=== PATIENT | female | born 1965 | race Caucasian/White ===

== ENCOUNTER 2022-04-08 12:27 | Inpatient (IN) | payer MEDICARE, MEDICAID, SELFPAY ==
--- NOTE | ~2022-04-08 | CT_ITS ---
EXAMINATION: CT ABDOMEN AND PELVIS WITHOUT CONTRAST CLINICAL INFORMATION: Vomiting. Pain. COMPARISON: None TECHNIQUE: Multidetector volumetric imaging was performed from the superior aspect of the liver through the pubic symphysis. Sagittal and coronal reformatted images were obtained on the technologist's workstation. This CT examination was performed using dose optimization techniques as appropriate, variously including the following: *Automated exposure control *Adjustment of mA and/or kV according to patient size (this includes techniques or standardized protocols for targeted exams where dose is matched to indication/reason for exam; i.e. extremities or head) *Use of iterative reconstruction technique DLP: 529 mGy-cm FINDINGS: LUNG BASES: The heart is enlarged. There is a small right pleural effusion. There is airspace disease seen at the right lung base in the right middle and lower lobes questionable for small pneumonia. Left lung base is clear. LIVER, GALLBLADDER, AND BILIARY TREE: The liver is normal in size, shape, and attenuation. No focal hepatic lesion or biliary ductal dilatation is present. The gallbladder has been removed. PANCREAS: Unremarkable. SPLEEN: Unremarkable. ADRENAL GLANDS: Unremarkable. The [place] kidneys are atrophic. There are bilateral renal calcifications probably representing vascular calcifications. BLADDER: Not optimally distended. GASTROINTESTINAL TRACT: There is wall thickening and edema of the colon suggestive of colitis. The stomach is slightly dilated fluid-filled. There are fluid-filled slightly dilated loops of small bowel probably representing an ileus. The appendix is normal. There is a small amount of ascites in the abdomen and pelvis. ABDOMINAL WALL: There is diffuse anasarca. No hernia. LYMPH NODES: Normal. VASCULAR: There is severe atherosclerotic disease. There is a femoral-femoral bypass graft. There are bilateral renal artery and left iliac stents. PELVIC VISCERA: The uterus may been removed. No pelvic mass. OSSEOUS STRUCTURES: Unremarkable. CT/CT abdomen pelvis wo IV con IMPRESSION: Pancolitis. Probable small bowel ileus. Dilated fluid-filled stomach. Possible aspiration should be considered. Small amount of ascites. Severe atherosclerotic disease. Atrophic-appearing kidneys. Small right pleural effusion and question right lower lobe pneumonia. Fleischner guidelines were followed.
--- NOTE | ~2022-04-08 | US_ITS ---
EXAMINATION: US ABDOMEN LIMITED CLINICAL INFORMATION: Right upper quadrant pain. COMPARISON: CT of the abdomen and pelvis from earlier the same day TECHNIQUE: Real-time imaging of the right upper quadrant abdominal viscera. FINDINGS: The liver is normal in echotexture. Liver is normal in size. No focal lesion or biliary duct dilatation. The gallbladder has been removed. There is a small amount of ascites. US/US abdomen limited IMPRESSION: Normal-appearing liver. Surgically absent gallbladder. Small amount of ascites.
--- NOTE | 2022-04-08 12:36 | ED.GIBLEED ---
HPI - GI Bleed General Chief complaint: GI Bleed Stated complaint: VOMITING DARK EMESIS,ABD PAIN,+CDIFF PER SNF Time Seen by Provider: 04/08/22 12:28 Source: patient and old records reviewed Mode of arrival: EMS Limitations: no limitations History of Present Illness HPI Narrative: 56 yo female with hx of NSTEMI, CAD, COPD, ESRD on HD MWF, HTN, HLD, PAF on eliquis, also on plavix?, GERD, muscle wasting here with c/o nausea/vomiting and abdominal pain this AM - started to have coffee ground emesis as well. Denies prior GIB symptoms. States she has never had this happen before and has not had endoscopy in the past. She is currently being treated for C. diff dx 03/30 last dose of vancomycin 04/10. MD complaint: coffee ground emesis Onset (ago): day(s) (this AM.) Pain Consistency: constant Severity: moderate Relieving factors: eating Exacerbating factors: none Context: anticoagulant use Associated symptoms: abdominal pain, nausea, vomiting, loss of appetite and malaise Treatments Prior to Arrival: none Related Data Home Medications Medication Instructions Recorded Confirmed albuterol sulfate 90 mcg/actuation 2 puff inhalation Q6H PRN 04/08/22 04/08/22 aerosol inhaler (ProAir HFA) Shortness Of Breath apixaban 2.5 mg tablet (Eliquis) 2.5 mg PO BID 04/08/22 04/08/22 cholecalciferol (vitamin D3) 25 25 mcg PO DAILY 04/08/22 04/08/22 mcg (1,000 unit) tablet clopidogrel 75 mg tablet (Plavix) 75 mg PO DAILY 04/08/22 04/08/22 docusate sodium 100 mg capsule 100 mg PO BID PRN Constipation 04/08/22 04/08/22 (Colace) duloxetine 60 mg capsule,delayed 60 mg PO DAILY 04/08/22 04/08/22 release (Cymbalta) epoetin joselyn 20,000 unit/mL 20,000 unit subcut MOWEFR@1600 PRN 04/08/22 04/08/22 injection solution (Procrit) ANEMIA fenofibrate nanocrystallized 145 145 mg PO DAILY 04/08/22 04/08/22 mg tablet gabapentin 100 mg capsule 300 mg PO BEDTIME 04/08/22 04/08/22 hydrocortisone 1 % topical cream 1 appl topical BID 04/08/22 04/08/22 insulin glargine 100 unit/mL 6 unit subcut BEDTIME 04/08/22 04/08/22 subcutaneous solution insulin lispro 100 unit/mL 1 sliding scale dose subcut QIDACHS 04/08/22 04/08/22 subcutaneous solution ipratropium 20 mcg-albuterol 100 1 puff inhalation Q6H PRN COPD 04/08/22 04/08/22 mcg/actuation mist for inhalation (Combivent Respimat) isosorbide mononitrate 30 mg 30 mg PO SUTUTHSA@0900 04/08/22 04/08/22 tablet,extended release 24 hr lactobacillus combination no.4 3 3,000 mmu cells PO DAILY 04/08/22 04/08/22 billion cell capsule (Probiotic) levothyroxine 50 mcg tablet 50 mcg PO DAILY 04/08/22 04/08/22 (Levoxyl) melatonin 3 mg tablet 3 mg PO BEDTIME PRN Insomnia 04/08/22 04/08/22 metoprolol tartrate 25 mg tablet 12.5 mg PO DAILY 04/08/22 04/08/22 midodrine 5 mg tablet 5 mg PO TIDWM 04/08/22 04/08/22 nitroglycerin 0.4 mg sublingual 0.4 mg sublingual Q5M PRN Chest 04/08/22 04/08/22 tablet Pain oxycodone 5 mg tablet 5 mg PO Q6H PRN Pain 04/08/22 04/08/22 polyethylene glycol 3350 17 gram 17 g PO DAILY PRN Constipation 04/08/22 04/08/22 oral powder packet (Miralax) rosuvastatin 40 mg tablet (Crestor) 40 mg PO DAILY 04/08/22 04/08/22 sevelamer carbonate 800 mg tablet 800 mg PO TIDWM 04/08/22 04/08/22 umeclidinium 62.5 mcg-vilanterol 1 inh inhalation DAILY 04/08/22 04/08/22 25 mcg/actuation powdr for inhalation (Anoro Ellipta) vancomycin 25 mg/mL oral solution 125 mg PO QID 04/08/22 04/08/22 (Firvanq) vitamin B complex and vitamin C 1 cap PO MOWEFR 04/08/22 04/08/22 no.20-folic acid 1 mg capsule Allergies Allergy/AdvReac Type Severity Reaction Status Date / Time bupropion [From Wellbutrin] Allergy Unknown Unknown Verified 04/08/22 14:33 nefazodone [From Serzone] Allergy Unknown Unknown Verified 04/08/22 14:33 varenicline [From Chantix] Allergy Unknown Unknown Verified 04/08/22 14:33 lisinopril Allergy Unknown Unknown Uncoded 04/08/22 14:33 Review of Systems Review of Systems: Constitutional : No Weight loss, No Fever, No Chills ENT/Mouth : No sore throat, No Rhinorrhea Eyes: No Swelling, No Redness Cardiovascular : No Chest Pain, No SOB, NoEdema Respiratory : No Cough, No Sputum, No Wheezing Gastrointestinal : Positive Nausea, Positive Vomiting, positive Diarrhea, positive abdominal Pain, No Hematochezia, No Melena, pos coffee ground emesis Genitourinary : No Dysuria, No Urinary Frequency, No Hematuria, No Urgency Musculoskeletal : No joint pain, No Myalgias, No Joint Swelling Skin : No Skin Lesions, No rash Neuro : No Weakness, No Numbness, No Dizziness, No Headache Psych : No Anxiety/Panic, No Depression Heme/Lymph: No Bruising, No Lymphadenopathy Endocrine : No Polyuria, No Polydipsia All other systems reviewed and are negative. PENDING SALE TO [facility] Past Medical History Attestation statement: The following information was validated with the patient. Source: old records reviewed Medical History (Updated 04/08/22 @ 16:36 by Anne Marie Kaur DO) Afib Anticoagulant long-term use Anxiety C. difficile colitis CAD (coronary artery disease) COPD (chronic obstructive pulmonary disease) Diabetes ESRD (end stage renal disease) GERD (gastroesophageal reflux disease) HTN (hypertension) Hyperlipidemia NSTEMI (non-ST elevated myocardial infarction) Systolic CHF Social History Social History (System 04/08/22 @ 14:33 by Pooja Mccormack) Patient Tobacco Use Status: Tobacco use Unknown Advance Directives: Yes Advance Directives Information Provided: Yes Advance Directives on File: No Physical Exam Vital Signs: Vital Signs: Last Vital Signs Temp 98 F 04/08/22 13:24 Pulse 88 04/08/22 16:21 Resp 16 04/08/22 16:21 BP 120/97 H 04/08/22 16:21 BMI result Body Mass Index 23.8 Appearance: Alert. Oriented X3. Mild acute distress. frail older appearing Eyes: Pupils equal, round and reactive to light. Scleral icterus ENT: Pharynx normal. Neck: Normal inspection. Neck supple. CVS: Normal heart rate and rhythm. Pulses 1+ throughout Respiratory: No respiratory distress. Breath sounds diminished both bases R > L Abdomen: Soft and diffuse ttp in epigastric area no rebound, scant brown coffee grounds noted in emesis bag Rectal soft light brown foul smelling stool noted Skin: Skin warm and dry. pale / jaskin color. chronic bruising and discoloration on feet. fistula LUE Extremities: 1+ pitting lower extremity edema. purplish hue to all digits in extremities states this is chronic Neuro: Oriented X 3. No motor deficit. No sensory deficit. Course Course Course Narrative: trop high c/o upper abdominal pain - vomiting coffee ground emesis, LBBB attempting to get old EKGs patient already took eliquis and plavix this AM EKG unchanged from Feb 2022 has chronic LBBBB SNF records note patient was to be managed medically for her CAD not a CABG candidate, patient notes the same thing to me and is aware she has a LBBB denies chest pain but reports nausea at this time BP 110/70 more abdominal pain IV zofran and fentanyl ordered. I discussed if the patient is having a heart attack or if she is to code the patient states she doesn't want CPR and wants to be let go but in no pain. H/H still pending trop high - will put out call to Cardiology once H/H returned stomach is enlarged will decompress with small NG tube if she allows refusing NG tube until arrives, told RN he was on the way. message sent to Cardiology 345pm patient is not a candidate for aspirin or heparin - coags are already high but also she is having coffee ground emesis - patient is not having chest pain at this time, no medications or cardiac workup to be done. at bedside aware patient wishes to be DNR/DNI- she is refusing NG tube at this time, repeat fentanyl ordered patient states her GB was removed has elevated LFTs new MOLST form signed with patient and by who is HCP signed out to Dr. Urrutia pending CT scan report and US - planned admit will add on lactic acid, cultures - possible aspiration will add on zosyn infection suspected 430pm already on oral vancomycin for her c diff colitis patient now stating she doesn't want to do HD anymore - family likely wants to talk to hospice team while she is here. they are having discussions at bedside, patient has refused further IV placement, no central line no NG tube. MDM - GI Bleed MDM Narrative Medical decision making narrative: 56 yo female with hx of NSTEMI, CAD, COPD, ESRD on HD MWF, HTN, HLD, PAF on eliquis, also on plavix?, GERD, muscle wasting here with abdominal pain n/v and now coffee ground emesis. She is on both plavix and eliquis - IV protonix ordered. She is currently under treatment for C diff. Will need CT scan for extent of colitis vs ileus vs SBO - likely admit. Dispo per results and findings. Lab Data Result diagrams: 04/08/22 14:47 04/08/22 14:47 Labs: Lab Results 04/08/22 04/08/22 04/08/22 Range/Units 13:18 14:08 14:47 WBC 10.0 (4.8-10.8) X10*3/uL RBC 3.25 L (4.20-5.50) X10*6/uL Hgb 10.3 L (12.0-16.0) g/dl Hct 34.3 L (37.0-47.0) % MCV 105.5 H D (80.0-98.0) fL MCH 31.7 (27.0-33.0) pg MCHC 30.0 L (31.0-35.0) g/dl RDW 23.9 H (11.0-16.0) % Plt Count 103 L (160-400) X10*3/uL MPV 12.6 H (9.4-12.3) fL Immature Gran % (Auto) 0.4 (0.0-0.4) % Neut % (Auto) 82.7 H (45-73) % Lymph % (Auto) 6.3 L (20-40) % Wayne % (Auto) 10.5 (2-11) % Eos % (Auto) 0.0 (0-4) % Baso % (Auto) 0.1 (0-2) % Lymph # (Auto) 0.6 L (1.2-4.9) X10*3/uL Wayne # (Auto) 1.1 (0.1-1.2) X10*3/uL Eos # (Auto) 0.0 (0.0-0.4) X10*3/uL Baso # (Auto) 0.0 (0.0-0.2) X10*3/uL Abs Immat Gran (auto) 0.04 H (0.00-0.03) X10*3/uL Absolute Neuts (auto) 8.2 (2.0-8.3) x10*3/uL Absolute Nucleated RBC 0.130 H (0.0-0.012) X10*3/uL Nucleated RBC % (auto) 1.3 H (0.0-0.2) /100WBC PT (10.0-13.1) SEC INR (0.9-1.1) APTT (26.0-36.4) SEC Sodium (135-145) mmol/L Potassium (3.3-5.1) mmol/L Chloride (96-108) mmol/L Carbon Dioxide (22-29) mmol/L Anion Gap (12-20) BUN (9-16) mg/dL Creatinine (0.5-1.4) mg/dL Estim Creat Clear Calc Estimated GFR Random Glucose (60-115) mg/dL Calcium (8.4-10.2) mg/dL Magnesium (1.6-2.6) mg/dL Total Bilirubin (0.0-1.0) mg/dL Direct Bilirubin (0.0-0.5) mg/dL AST (5-31) U/L ALT (0-31) U/L Alkaline Phosphatase (39-117) U/L Troponin I High Sens 9228.8 H* (<3.5-17.0) ng/L Total Protein (6.5-8.0) g/dL Albumin (3.5-5.0) g/dL Lipase (8-78) U/L COVID-19 ([facility]) Negative (Negative) COVID-19 Clin Com See Note Blood Type Antibody Screen 04/08/22 04/08/22 04/08/22 Range/Units 14:47 14:47 14:47 WBC (4.8-10.8) X10*3/uL RBC (4.20-5.50) X10*6/uL Hgb (12.0-16.0) g/dl Hct (37.0-47.0) % MCV (80.0-98.0) fL MCH (27.0-33.0) pg MCHC (31.0-35.0) g/dl RDW (11.0-16.0) % Plt Count (160-400) X10*3/uL MPV (9.4-12.3) fL Immature Gran % (Auto) (0.0-0.4) % Neut % (Auto) (45-73) % Lymph % (Auto) (20-40) % Wayne % (Auto) (2-11) % Eos % (Auto) (0-4) % Baso % (Auto) (0-2) % Lymph # (Auto) (1.2-4.9) X10*3/uL Wayne # (Auto) (0.1-1.2) X10*3/uL Eos # (Auto) (0.0-0.4) X10*3/uL Baso # (Auto) (0.0-0.2) X10*3/uL Abs Immat Gran (auto) (0.00-0.03) X10*3/uL Absolute Neuts (auto) (2.0-8.3) x10*3/uL Absolute Nucleated RBC (0.0-0.012) X10*3/uL Nucleated RBC % (auto) (0.0-0.2) /100WBC PT 51.3 H (10.0-13.1) SEC INR 4.2 H (0.9-1.1) APTT 46.7 H (26.0-36.4) SEC Sodium 136 (135-145) mmol/L Potassium 3.8 D (3.3-5.1) mmol/L Chloride 92 L (96-108) mmol/L Carbon Dioxide 17 L (22-29) mmol/L Anion Gap 31 H (12-20) BUN 25 H (9-16) mg/dL Creatinine 3.93 H (0.5-1.4) mg/dL Estim Creat Clear Calc 13.3 Estimated GFR 12 Random Glucose 88 (60-115) mg/dL Calcium 9.6 D (8.4-10.2) mg/dL Magnesium 2.1 (1.6-2.6) mg/dL Total Bilirubin 5.4 H (0.0-1.0) mg/dL Direct Bilirubin 4.6 H (0.0-0.5) mg/dL AST 1016 H (5-31) U/L ALT 221 H (0-31) U/L Alkaline Phosphatase 103 (39-117) U/L Troponin I High Sens (<3.5-17.0) ng/L Total Protein 5.6 L (6.5-8.0) g/dL Albumin 2.8 L (3.5-5.0) g/dL Lipase 28 (8-78) U/L COVID-19 ([facility]) (Negative) COVID-19 Clin Com Blood Type A Positive Antibody Screen NEGATIVE ECG Data Attestation: I personally reviewed and interpreted this ECG as follows: ECG interpretation date: 04/08/22 ECG interpretation time: 12:57 Interpretation: Rate: 89 Rhythm: NSR [place]: left Normal P waves. Normal JHON. LBBB ST T wave : no DIANA, nonspecific LBBB pattern qTC: normal prior studies: no priors The study has been interpreted contemporaneously by me. . Procedures EJ/Peripheral Line Neck R: Time Out Performed: Yes Skin Cleansed in Sterile Fashion: Yes Size (gauge): 20 IV Secured and Dressing Applied: Yes Patient Tolerated Procedure: well and no complications Critical Care Time Critical Care Time Critical Care Time: Yes Total Critical Care Time: 45 Attestation: review of records, medical consult, family discussion I attest to this time spent taking care of the patient Discharge Plan Discharge Clinical Impression: Acute upper gastrointestinal bleeding, Nausea, Non-ST elevation MT (NSTEMI), Elevated liver enzymes, Pancolitis, C. difficile colitis, Ileus Aspiration pneumonia Qualifiers: Aspiration pneumonia type: due to vomit Laterality: right Lung location: unspecified part of lung Qualified Code(s): J69.0 - Pneumonitis due to inhalation of food and vomit Patient Disposition: Admitted As Inpatient
--- NOTE | 2022-04-08 12:42 | ECG_ITS ---
Test Reason : gi bleed Blood Pressure : / mmHG Vent. Rate : 089 BPM Atrial Rate : 089 BPM P-R Int : 158 ms QRS Dur : 180 ms QT Int : 466 ms P-R-T Axes : 038 -27 121 degrees QTc Int : 566 ms Normal sinus rhythm Left bundle branch block Abnormal ECG No previous ECGs available Referred By: Anne Marie Kaur Electronically Signed By:SHAWN CORNEJO
[2022-04-08 13:24] VITALS: BP 104/63; BP 93/61; PULSE 89; PULSE 90; RESP 22; TEMP 36.6; O2SAT 94; BMI 23.8
--- NOTE | 2022-04-08 13:34 | PHA.MEDREC ---
Pharmacy Consult ? Medication Reconciliation Pharmacy has completed the medication reconciliation. list provided from natalio rios
[2022-04-08] MEDS: Pantoprazole Sodium 40 MG/10 ML VIAL IVPUSH (13:47)
[2022-04-08] MEDS: ondansetron HCL 4 MG/2 ML VIAL IVPUSH ×3 (13:47→20:08)
[2022-04-08 14:47] LABS: COVID-19 Test Negative (Negative)
[2022-04-08 14:54] LABS: MANUAL DIFF FLAG NO
[2022-04-08 14:57] LABS: Basophils Percent Auto 0.1 % (0-2); Hematocrit 34.3 % (37.0-47.0); Hemoglobin 10.3 g/dl (12.0-16.0); Imm Gran Abs Auto 0.04 X10*3/uL (0.00-0.03); Imm Gran Pct Auto 0.4 % (0.0-0.4); Lymphocytes Absolute Auto 0.6 X10*3/uL (1.2-4.9); Lymphocytes Percent Auto 6.3 % (20-40); Mean Corpuscular Hemoglobin 31.7 pg (27.0-33.0); Mean Corpuscular Volume 105.5 fL (80.0-98.0); Mean Platelet Volume 12.6 fL (9.4-12.3); Monocytes Absolute Auto 1.1 X10*3/uL (0.1-1.2); Monocytes Percent Auto 10.5 % (2-11); Neutrophils Absolute Auto 8.2 x10*3/uL (2.0-8.3); Neutrophils Percent Auto 82.7 % (45-73); Platelet Count 103 X10*3/uL (160-400); Red Blood Count 3.25 X10*6/uL (4.20-5.50); Red Cell Distribution Width 23.9 % (11.0-16.0)
[2022-04-08 14:59] LABS: INTERNATIONAL NORM RATIO 4.2 (0.9-1.1); Prothrombin Time 51.3 SEC (10.0-13.1)
[2022-04-08 15:02] LABS: Partial Thromboplastin Time 46.7 SEC (26.0-36.4)
[2022-04-08] MEDS: fentaNYL citrate/PF 100 MCG/2 ML VIAL 25 MCG IVPUSH ×2 (15:24→16:11)
[2022-04-08 15:33] LABS: Alanine Aminotransferase 221 U/L (0-31); Albumin Level 2.8 g/dL (3.5-5.0); Alkaline Phosphatase 103 U/L (39-117); Anion Gap 31 (12-20); Aspartate Amino Transferase 1016 U/L (5-31); Bilirubin Direct 4.6 mg/dL (0.0-0.5); Bilirubin Total 5.4 mg/dL (0.0-1.0); Blood Urea Nitrogen 25 mg/dL (9-16); Calcium 9.6 mg/dL (8.4-10.2); Carbon Dioxide 17 mmol/L (22-29); Chloride 92 mmol/L (96-108); Creatinine Clr Calc Pharmacy 13.3; Estimated Glomerular Filt Rate 12; Glucose Random 88 mg/dL (60-115); Lipase 28 U/L (8-78); Magnesium 2.1 mg/dL (1.6-2.6); Potassium 3.8 mmol/L (3.3-5.1); Sodium 136 mmol/L (135-145); Total Protein 5.6 g/dL (6.5-8.0)
[2022-04-08 15:37] LABS: NRBC Pct Auto 1.3 /100WBC (0.0-0.2)
[2022-04-08 16:21] VITALS: BP 120/97; PULSE 88; RESP 16
--- NOTE | 2022-04-08 16:29 | PC.NURSE ---
FATHER HEENA CALLED @ [phone] FOR SACREMENT OF THE SICK STATES HE WILL BE HERE SHORTLY
--- NOTE | 2022-04-08 17:37 | P.HPHOSP_ITS ---
History of Present Illness Date of Service: 04/08/22 Attending physician on admission: Joni Valiente Chief Complaint: Abdominal pain This is a 56-year-old female patient with end-stage renal disease on hemodialysis, type 1 diabetes mellitus, history of hypertension, history of anemia of chronic disease, COPD, anxiety/depression, GERD, hyperlipidemia, neuropathy, peripheral arterial disease with occluded right iliac and left to right face fem-fem bypass graft, history of atrial fibrillation on anticoagulation. History of low blood pressures on midodrine, history of neuropathy on gabapentin, history of hypothyroidism, history of recurrent falls history of combined systolic and diastolic heart failure, history of recent hospitalization to [facility] where she was diagnosed to have non ST elevation NM, she is status post PCI deemed high risk for CABG, recent EF 20- 30% patient has been maintained on Plavix and aspirin and has been managed medically, patient also diagnosed to have C diff and was placed on vancomycin by mouth, patient was transferred to [facility] due to debility and generalized weakness patient was sent to [facility] today due to abdominal pain associated with coffee ground vomitus, she had low blood sugar of 54 at nursing facility that improved to 154, at [place] [facility] patient noted to have respiratory rate of 22 blood pressure 93/61 that improved with midodrine 2120/97, patient was noted to be afebrile tachypneic hard lab showed anion gap metabolic acidosis with bicarb of 17 troponin of 9228 elevated LFTs with a total bili 5.4, diarrhea bili 4.6 AST 1016, normal WBC hematocrit of 34 INR elevated at 4.2 low platelet count of [address] scan of the abdomen showed pancolitis with fluid filled dilated stomach possible aspiration and right lower lobe pneumonia there was also small right pleural effusion noted on examination patient noted to have by blue discoloration of toes cold right lower extremity patient noted to have diffuse mild tenderness of abdomen, patient declined NG tube placement, patient is requesting for pain medication and wants to be comfortable, handle rounder operator was consulted and they recommend no further treatment for elevated troponin since patient was recently worked up at [facility] and plan is for medical management, ER physician had a lengthy discussion with patient and her regarding code status a MOLST form has been signed and patient has been made DNR DNI , at present patient is resting comfortably she complained of persistent abdominal discomfort and wishes to be left alone and be made comfortable, she is refusing dialysis, refusing further intervention . 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 difficile colitis CAD (coronary artery disease) COPD (chronic obstructive pulmonary disease) Diabetes ESRD (end stage renal disease) GERD (gastroesophageal reflux disease) HTN (hypertension) Hyperlipidemia NSTEMI (non-ST elevated myocardial infarction) Systolic CHF Pertinent family history: Mother had coronary artery disease, glaucoma, father had alcohol dependence and his 1/2 stomach was removed Social History Patient Tobacco Use Status: Tobacco use Unknown Advance Directives Date on File: 04/09/22 Meds Allergies Allergy/AdvReac Type Severity Reaction Status Date / Time bupropion [From Wellbutrin] Allergy Unknown Unknown Verified 04/08/22 14:33 nefazodone [From Serzone] Allergy Unknown Unknown Verified 04/08/22 14:33 varenicline [From Chantix] Allergy Unknown Unknown Verified 04/08/22 14:33 lisinopril Allergy Unknown Unknown Uncoded 04/08/22 14:33 Active Medications: Current Medications Hydromorphone HCl (Hydromorphone Hcl 0.5 Mg/0.5 Ml Syringe) 0.5 mg IVPUSH Q4H PRN; Protocol PRN Reason: Pain, Severe (Pain Scale 7-10) Levothyroxine Sodium (Levothyroxine Sodium 100 Mcg Vial) 25 mcg IVPUSH DAILY [facility] Ondansetron HCl (Ondansetron Hcl 4 Mg/2 Ml Vial) 4 mg IVPUSH Q8H PRN PRN Reason: Nausea and Vomiting Pharmacy Consult (Consult Rx Perform Med Rec) 1 each MISCELLANE ONCE PRN PRN Reason: Consult order Sodium Chloride (0.9 % Sodium Chloride Flush 3 Ml Syringe) 3 ml [facility] Home Medications Medication Instructions Recorded Confirmed Last Taken Type albuterol sulfate 90 mcg/actuation 2 puff inhalation Q6H PRN 04/08/22 04/08/22 Unknown History aerosol inhaler (ProAir HFA) Shortness Of Breath apixaban 2.5 mg tablet (Eliquis) 2.5 mg PO BID 04/08/22 04/08/22 04/08/22 History cholecalciferol (vitamin D3) 25 25 mcg PO DAILY 04/08/22 04/08/22 04/08/22 History mcg (1,000 unit) tablet clopidogrel 75 mg tablet (Plavix) 75 mg PO DAILY 04/08/22 04/08/22 04/08/22 History docusate sodium 100 mg capsule 100 mg PO BID PRN Constipation 04/08/22 04/08/22 Unknown History (Colace) duloxetine 60 mg capsule,delayed 60 mg PO DAILY 04/08/22 04/08/22 04/08/22 History release (Cymbalta) epoetin joselyn 20,000 unit/mL 20,000 unit subcut MOWEFR@1600 PRN 04/08/22 04/08/22 Unknown History injection solution (Procrit) ANEMIA fenofibrate nanocrystallized 145 145 mg PO DAILY 04/08/22 04/08/22 04/08/22 History mg tablet gabapentin 100 mg capsule 300 mg PO BEDTIME 04/08/22 04/08/22 04/07/22 History hydrocortisone 1 % topical cream 1 appl topical BID 04/08/22 04/08/22 Unknown History insulin glargine 100 unit/mL 6 unit subcut BEDTIME 04/08/22 04/08/22 04/07/22 History subcutaneous solution insulin lispro 100 unit/mL 1 sliding scale dose subcut QIDACHS 04/08/22 04/08/22 04/08/22 History subcutaneous solution ipratropium 20 mcg-albuterol 100 1 puff inhalation Q6H PRN COPD 04/08/22 04/08/22 Unknown History mcg/actuation mist for inhalation (Combivent Respimat) isosorbide mononitrate 30 mg 30 mg PO SUTUTHSA@0900 04/08/22 04/08/22 04/08/22 History tablet,extended release 24 hr lactobacillus combination no.4 3 3,000 mmu cells PO DAILY 04/08/22 04/08/22 04/08/22 History billion cell capsule (Probiotic) levothyroxine 50 mcg tablet 50 mcg PO DAILY 04/08/22 04/08/22 04/08/22 History (Levoxyl) melatonin 3 mg tablet 3 mg PO BEDTIME PRN Insomnia 04/08/22 04/08/22 Unknown History metoprolol tartrate 25 mg tablet 12.5 mg PO DAILY 04/08/22 04/08/22 04/08/22 History midodrine 5 mg tablet 5 mg PO TIDWM 04/08/22 04/08/22 04/08/22 History nitroglycerin 0.4 mg sublingual 0.4 mg sublingual Q5M PRN Chest 04/08/22 04/08/22 Unknown History tablet Pain oxycodone 5 mg tablet 5 mg PO Q6H PRN Pain 04/08/22 04/08/22 Unknown History polyethylene glycol 3350 17 gram 17 g PO DAILY PRN Constipation 04/08/22 04/08/22 Unknown History oral powder packet (Miralax) rosuvastatin 40 mg tablet (Crestor) 40 mg PO DAILY 04/08/22 04/08/22 04/08/22 History sevelamer carbonate 800 mg tablet 800 mg PO TIDWM 04/08/22 04/08/22 04/08/22 History umeclidinium 62.5 mcg-vilanterol 1 inh inhalation DAILY 04/08/22 04/08/22 04/08/22 History 25 mcg/actuation powdr for inhalation (Anoro Ellipta) vancomycin 25 mg/mL oral solution 125 mg PO QID 04/08/22 04/08/22 04/08/22 History (Firvanq) vitamin B complex and vitamin C 1 cap PO MOWEFR 04/08/22 04/08/22 Unknown History no.20-folic acid 1 mg capsule Physical Exam Vital Signs and Narrative: Vital Signs: Last Vital Signs Temp 98 F 04/08/22 13:24 Pulse 88 04/08/22 16:21 Resp 16 04/08/22 16:21 BP 120/97 H 04/08/22 16:21 BMI result Body Mass Index 23.8 Const: Other: General chronically ill-appearing female, Adriel color, in no acute distress patient awake alert x3, Pupils equal round reactive To light and accommodation Neck no JVD. CVS regular rate rhythm, Respiratory lungs clear to auscultation, no respiratory distress, no wheeze, no rhonchi. Gastrointestinal abdomen soft, nondistended, diffuse tenderness to palpation, no rebound, no guarding, no rigidity. Extremities bilateral pitting edema, blue discoloration of right toes and bruise left foot as per patient chronic, Neuro nonfocal,moving all 4 extremity speech clear. Psych appropriate affect Results Labs CBC and Chem 7: 04/08/22 14:47 04/08/22 14:47 Labs: Laboratory Results - last 24 hr 04/08/22 04/08/22 04/08/22 14:08 14:47 14:47 MCV 105.5 H D MCH 31.7 MCHC 30.0 L RDW 23.9 H Plt Count 103 L MPV 12.6 H Immature Gran % (Auto) 0.4 Neut % (Auto) 82.7 H Lymph % (Auto) 6.3 L [place] % (Auto) 10.5 Eos % (Auto) 0.0 Baso % (Auto) 0.1 Lymph # (Auto) 0.6 L [place] # (Auto) 1.1 Eos # (Auto) 0.0 Baso # (Auto) 0.0 Abs Immat Gran (auto) 0.04 H Absolute Neuts (auto) 8.2 Absolute Nucleated RBC 0.130 H Nucleated RBC % (auto) 1.3 H PT INR APTT Anion Gap 31 H Estim Creat Clear Calc 13.3 Estimated GFR 12 Random Glucose 88 Calcium 9.6 D Magnesium 2.1 Total Bilirubin 5.4 H Direct Bilirubin 4.6 H AST 1016 H ALT 221 H Alkaline Phosphatase 103 Total Protein 5.6 L Albumin 2.8 L Lipase 28 COVID-19 (ROGER) Negative COVID-19 Clin Com See Note Blood Type Antibody Screen 04/08/22 04/08/22 14:47 14:47 MCV MCH MCHC RDW Plt Count MPV Immature Gran % (Auto) Neut % (Auto) Lymph % (Auto) [place] % (Auto) Eos % (Auto) Baso % (Auto) Lymph # (Auto) [place] # (Auto) Eos # (Auto) Baso # (Auto) Abs Immat Gran (auto) Absolute Neuts (auto) Absolute Nucleated RBC Nucleated RBC % (auto) PT 51.3 H INR 4.2 H APTT 46.7 H Anion Gap Estim Creat Clear Calc Estimated GFR Random Glucose Calcium Magnesium Total Bilirubin Direct Bilirubin AST ALT Alkaline Phosphatase Total Protein Albumin Lipase COVID-19 ([facility]OGER) COVID-19 Clin Com Blood Type A Positive Antibody Screen NEGATIVE Imaging Radiologist's Impressions: Impressions Abdomen/Pelvis CT 04/08/22 15:12 IMPRESSION: Pancolitis. Probable small bowel ileus. Dilated fluid-filled stomach. Possible aspiration should be considered. Small amount of ascites. Severe atherosclerotic disease. Atrophic-appearing kidneys. Small right pleural effusion and question right lower lobe pneumonia. Fleischner guidelines were followed. Abdomen Ultrasound 04/08/22 16:43 IMPRESSION: Normal-appearing liver. Surgically absent gallbladder. Small amount of ascites. Assessment and Plan (1) Acute upper gastrointestinal bleeding: Status: Acute (2) Nausea: Status: Acute (3) Non-ST elevation NM (NSTEMI): Status: Acute (4) Elevated liver enzymes: Status: Acute (5) Pancolitis: Status: Acute (6) C. difficile colitis: Status: Acute (7) Ileus: Status: Acute (8) Aspiration pneumonia: Qualifiers: Aspiration pneumonia type: due to vomit Laterality: right Lung location: unspecified part of lung Qualified Code(s): J69.0 - Pneumonitis due to inhalation of food and vomit Status: Acute Plan 56-year-old female with multiple medical issues including history of coronary artery disease being medically managed with prior history of PCI, history of atrial fibrillation on anticoagulation, end-stage renal disease on hemodialysis, brought into [facility] due to symptoms of abdominal pain and coffee-g round emesis and noted to have elevated troponin, elevated INR, dilated fluid- filled stomach, guallpa colitis, possible aspiration pneumonia Patient is declining further workup and requesting medications for comfort only Elevated troponin, patient recently discharged from [facility] ER physician discussed case with Cardiology plan is to continue medical management with no further intervention, since patient has coffee-ground emesis will hold aspirin and Plavix continue metoprolol and statins as tolerated. EKG showed left bundle-branch block that seems chronic Acute Abdominal pain with coffee-ground emesis CT scan showed pancolitis, fluid- filled dilated stomach question gastroparesis related to diabetes, patient refusing NG placement, will place on antiemetics, ppi follow CBC Question related to recently diagnosed C diff infection on vancomycin by mouth end date 04/10, will place on IV Flagyl, if patient wishes to be treated will obtain ID consultation Aspiration pneumonia received 1 dose of IV Zosyn in the emergency room patient refusing further antibiotics Anion gap metabolic acidosis likely due to end-stage renal disease patient refusing to continue hemodialysis will discuss code status and 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 Transaminitis noted to have significantly elevated LFTs CT abdomen showed normal-appearing pancreas, normal liver, no focal hepatic lesions or biliary ductal dilatation, patient is status post cholecystectomy pancreas is unremarkable, will add Tylenol level , hepatitis ABC serology, avoid hepatotoxins, follow LFTs, noted to have significant rise in AST in last 24 hours, obtain GI consult if patient wishes further intervention. End-stage renal disease patient declining hemodialysis will consult Nephrology and will discuss comfort care History of chronic combined systolic and diastolic heart failure continue metoprolol no acute exacerbation noted continue hemodialysis the patient agrees. Type 2 diabetes mellitus on insulin will hold insulin since patient is NPO monitor blood sugars t.i.d. Peripheral arterial disease on Plavix will hold Plavix due to coffee-ground emesis Chronic anemia in chronic disease hematocrit stable COPD no acute exacerbation continue home inhalers and add DuoNeb as needed Hypothyroidism elevated TSH due to abdominal pain will change medications to IV Code status DNR DNI DVT prophylaxis elevated INR 4.2, will hold Eliquis Patient will need 2 night inpatient stay due to abdominal pain with guallpa colitis, elevated LFTs, end-stage renal disease requiring hemodialysis, elevated troponin, Case discussed with patient's Yousuf flower at [phone] he agrees with patient's wishes to be kept comfortable, since she has poor quality of life mostly being in bed has been suffering multiple medical issues in and out of hospitals and not happy residing at rehab facility, he agreed with patient to avoid further intervention, he wishes to take her home and requesting for hospital bed will obtain hospice consult to arrange for hospice care at home will hold off on further lab draws and further testing, goal of care is comfort. Therefore patient will not be treated with antibiotics, no follow-up labs will be done as previously planned . Quality Stroke Does the patient have a stroke diagnosis?: No VTE Prior VTE?: No VTE Risk Level:: Medical - moderate - high VTE Device Contraindication: Treatment Not Indicated VTE Drug Contraindication: Treatment Not Indicated
--- NOTE | 2022-04-08 17:46 | PC.NURSE ---
PT IS REFUSING ALL TREATMENTS INCLUDING ANTIBIOTICS, IV INFUSION, NGT.
[2022-04-08] MEDS: HYDROmorphone HCl 0.5 MG/0.5 ML SYRINGE IVPUSH (20:08)
[2022-04-09] VITALS: BP 130/88; PULSE 100; RESP 14; TEMP 36.8; O2SAT 100
[2022-04-09] MEDS: HYDROmorphone HCl 0.5 MG/0.5 ML SYRINGE IVPUSH ×3 (00:57→10:20)
[2022-04-09 04:00] VITALS: BP 94/48; PULSE 86; RESP 14; TEMP 36.8; O2SAT 100
--- NOTE | 2022-04-09 05:43 | PC.NURSE ---
Patient incont of stool - bed change / pericare done by tech. Patient drowsy, but arousable.
[2022-04-09 06:00] VITALS: BP 114/49; PULSE 88; RESP 14; TEMP 35.2; O2SAT 94
[2022-04-09] MEDS: Pantoprazole Sodium 40 MG/10 ML VIAL IVPUSH (06:01)
[2022-04-09] MEDS: Midodrine HCl 5 MG TABLET PO (10:22)
[2022-04-09] MEDS: Metoprolol Tartrate 12.5 MG HALFTAB PO (10:22)
[2022-04-09] MEDS: 0.9 % Sodium Chloride Flush 3 ML SYRINGE IVFLUSH ×2 (10:24→13:45)
[2022-04-09 10:26] VITALS: BP 97/67; PULSE 107
[2022-04-09 10:27] VITALS: BP 95/63; PULSE 106; RESP 19; O2SAT 100
--- NOTE | 2022-04-09 10:34 | MHC.CM.PN ---
Addendum entered by Halley Clinton 04/09/22 10:59: PER DISCUSSION WITH PT AND , PT WILL DC HOME TOMORROW MORNING [facility] ASKS THAT IT BE AN EARLY DC MD AWARE Original Note: HOSPICE CONSULT COMPLETED. CM INFORMED THE PLAN WILL BE FOR PT TO DC HOME WITH HOSPICE SERVICES A HOSPITAL BED WILL BE DELIVERED TO PTS HOME TODAY AROUND 1600 HOURS AND [facility] WILL PROVIDE SOC TOMORROW CM CALLED PTS , HUBER [phone] WHO IS AWARE OF THE PLAN FOR BED DELIVERY AND SOC HE REPORTS HE IS UNSURE IF THE PT SHOULD COME HOME TODAY AFTER 1600 HOURS OR TOMORROW WHEN SHE WILL BE SEEN BY [facility] PER DISCUSSION, RENAN WILL DISCUSS PLAN WITH PT DIRECTLY AND LET HUBER KNOW ONCE A DECISION IS MADE.
[2022-04-09 11:03] LABS: Glucose, Whole Blood 12 mg/dL (60-115)
[2022-04-09 11:03] LABS: Glucose, Whole Blood < 10 mg/dL (60-115)
[2022-04-09 11:22] LABS: Glucose, Whole Blood 17 mg/dL (60-115)
[2022-04-09] MEDS: Levothyroxine Sodium 100 MCG/5 ML VIAL 25 MCG IVPUSH (11:22)
[2022-04-09] MEDS: vancomycin HCL Oral Solution 125 MG/5 ML SOLN.RECON PO (11:23)
[2022-04-09] MEDS: Dextrose 50 % 25 GM/50 ML SYRINGE IVPUSH ×2 (11:25→13:44)
--- NOTE | 2022-04-09 11:29 | PC.NURSE ---
dr monique to bedside, made pt mat roller , 2nd amp d 50 given, pt wants pain meds only and confirmed w . alert, poc 145
[2022-04-09 11:34] LABS: Glucose, Whole Blood 145 mg/dL (60-115)
--- NOTE | 2022-04-09 12:23 | P.PNIM_ITS ---
Subjective Subjective Date of Service: 04/09/22 Interval History: Patient resting in bed ill-appearing wants pain medication only refusing lab draws and blood sugar monitoring, noted to have low blood sugars less than 10 this morning treated with D50 blood sugar improved to 145 likely has poor circulation of finger since finger tips or cyanosed, mentating fine despite such low blood sugars, keeping her her eyes close very weak to communicate Review of Systems Review of Systems: Yes all other systems are reviewed and are negative Physical Exam Vital Signs: Vital Signs: Last Vital Signs Temp 95.4 F L 04/09/22 06:00 Pulse 106 H 04/09/22 10:27 Resp 19 04/09/22 10:27 BP 95/63 04/09/22 10:27 Pulse Ox 100 04/09/22 10:27 O2 Del Method 04/09/22 10:27 O2 Flow Rate 3 04/09/22 10:27 BMI result Body Mass Index 23.8 Const: Other: General chronicall y ill-appearing fe male, poor skin co vinay, in no acute d istress, looks old er than stated age Pupils equal rou nd reactive To lig ht and accommodati on? Neck? no JVD. CVS? regular rate rhythm, Respirator y lungs clear to a uscultation, no re spiratory distress , no wheeze, no rh onchi. Gastrointes tinal abdomen soft , nondistended, di ffuse tenderness t o palpation, no re bound, no guarding , no rigidity. Ext remities bilateral pitting edema, bl ue discoloration o f right toes and b ruise left foot as per patient chron ic, Blue discolora tion finger tips N euro nonfocal,movi ng all 4 extremity speech clear, sof t. Psych appropria te affect Objective Data Active Medications Albuterol Sulfate (Albuterol Sulfate 90 Mcg 8 Gm Inhaler) 2 puff INHALE RQ6H PRN PRN Reason: Shortness Of Breath Hydromorphone HCl (Hydromorphone Hcl 0.5 Mg/0.5 Ml Syringe) 0.5 mg IVPUSH Q4H PRN; Protocol PRN Reason: Pain, Severe (Pain Scale 7-10) Last Admin: 04/09/22 10:20 Dose: 0.5 mg Documented By: NIKIA Ondansetron HCl (Ondansetron Hcl 4 Mg/2 Ml Vial) 4 mg IVPUSH Q8H PRN PRN Reason: Nausea and Vomiting Last Admin: 04/08/22 20:08 Dose: 4 mg Documented By: RENATA Pharmacy Consult (Consult Rx Perform Med Rec) 1 each MISCELLANE ONCE PRN PRN Reason: Consult order Sodium Chloride (0.9 % Sodium Chloride Flush 3 Ml Syringe) 3 ml IVFLUSH QSHIFT [facility] Last Admin: 04/09/22 10:24 Dose: 3 ml Documented By: NIKIA Labs CBC & Chem 7: 04/08/22 14:47 04/08/22 14:47 Labs: Laboratory Results - last 24 hr 04/08/22 04/08/22 04/08/22 14:08 14:47 14:47 MCV 105.5 H D MCH 31.7 MCHC 30.0 L RDW 23.9 H Plt Count 103 L MPV 12.6 H Immature Gran % (Auto) 0.4 Neut % (Auto) 82.7 H Lymph % (Auto) 6.3 L Holmes % (Auto) 10.5 Eos % (Auto) 0.0 Baso % (Auto) 0.1 Lymph # (Auto) 0.6 L Holmes # (Auto) 1.1 Eos # (Auto) 0.0 Baso # (Auto) 0.0 Abs Immat Gran (auto) 0.04 H Absolute Neuts (auto) 8.2 Absolute Nucleated RBC 0.130 H Nucleated RBC % (auto) 1.3 H PT INR APTT Anion Gap 31 H Estim Creat Clear Calc 13.3 Estimated GFR 12 POC Glucose Random Glucose 88 Calcium 9.6 D Magnesium 2.1 Total Bilirubin 5.4 H Direct Bilirubin 4.6 H AST 1016 H ALT 221 H Alkaline Phosphatase 103 Total Protein 5.6 L Albumin 2.8 L Lipase 28 COVID-19 ([facility]) Negative COVID-19 Clin Com See Note Blood Type Antibody Screen 04/08/22 04/08/22 04/09/22 14:47 14:47 10:55 MCV MCH MCHC RDW Plt Count MPV Immature Gran % (Auto) Neut % (Auto) Lymph % (Auto) Holmes % (Auto) Eos % (Auto) Baso % (Auto) Lymph # (Auto) Holmes # (Auto) Eos # (Auto) Baso # (Auto) Abs Immat Gran (auto) Absolute Neuts (auto) Absolute Nucleated RBC Nucleated RBC % (auto) PT 51.3 H INR 4.2 H APTT 46.7 H Anion Gap Estim Creat Clear Calc Estimated GFR POC Glucose < 10 L* Random Glucose Calcium Magnesium Total Bilirubin Direct Bilirubin AST ALT Alkaline Phosphatase Total Protein Albumin Lipase COVID-19 ([facility]) COVID-19 Clin Com Blood Type A Positive Antibody Screen NEGATIVE 04/09/22 04/09/22 04/09/22 10:58 11:15 11:29 MCV MCH MCHC RDW Plt Count MPV Immature Gran % (Auto) Neut % (Auto) Lymph % (Auto) Holmes % (Auto) Eos % (Auto) Baso % (Auto) Lymph # (Auto) Holmes # (Auto) Eos # (Auto) Baso # (Auto) Abs Immat Gran (auto) Absolute Neuts (auto) Absolute Nucleated RBC Nucleated RBC % (auto) PT INR APTT Anion Gap Estim Creat Clear Calc Estimated GFR POC Glucose 12 L* 17 L* 145 H Random Glucose Calcium Magnesium Total Bilirubin Direct Bilirubin AST ALT Alkaline Phosphatase Total Protein Albumin Lipase COVID-19 ([facility]ER) COVID-19 Clin Com Blood Type Antibody Screen Assessment and Plan (1) Acute upper gastrointestinal bleeding: Status: Acute (2) Non-ST elevation OR (NSTEMI): Status: Acute (3) Elevated liver enzymes: Status: Acute Plan 56-year-old female with multiple medical issues including history of coronary artery disease being medically managed with prior history of PCI, history of atrial fibrillation on anticoagulation, end-stage renal disease on hemodialysis, brought into [facility] due to symptoms of abdominal pain and coffee- ground emesis and noted to have elevated troponin, elevated INR, dilated fluid- filled stomach, guallpa colitis, possible aspiration pneumonia Patient is declining further workup and requesting for comfort only. Non ST-elevation OR significantly elevated troponin no chest pain, patient recently discharged from [facility] where she was diagnosed to have non ST-elevation OR status post PCI was deemed high risk for CABG, EF 20-30% has chronic left bundle-branch block patient wishes no further treatment Pancolitis/recent C diff colitis End-stage renal disease Upper GI bleed Nausea vomiting with coffee-ground emesis, H&H stable anion gap metabolic acidosis Chronic combined diastolic/systolic heart failure no acute exacerbation Chronic anemia due to anemia of chronic kidney disease COPD no acute exacerbation Hypothyroidism Transaminitis Aspiration pneumonia Hypoglycemia with history of diabetes mellitus Peripheral arterial disease status post left to right fem-fem bypass graft with persistent right lower extremity disease with right foot cyanotic toes. As per patient and healthcare proxy Yousuf flower at [phone]? 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 arranging for safe discharge. Reason to stay need safe discharge home with hospice, supplies will be provided to home this evening and hospice nose will be available from tomorrow. Quality Stroke Does the patient have a stroke diagnosis?: No VTE Prior VTE?: No VTE Risk Level:: Medical - moderate - high VTE Device Contraindication: Treatment Not Indicated VTE Drug Contraindication: Treatment Not Indicated
--- NOTE | 2022-04-09 13:46 | PC.NURSE ---
sr on monitor, sleeping, nad
--- NOTE | 2022-04-09 18:18 | PC.NURSE ---
sr on monitor, sleeping, checked on pt hourly since last dilaudid and pt has been sleeping soundly w nad, no facial grimace, resp even and unlabored,
[2022-04-09 22:26] VITALS: BP 85/41; PULSE 75; RESP 13; O2SAT 95
[2022-04-10] MEDS: 0.9 % Sodium Chloride Flush 3 ML SYRINGE IVFLUSH (01:30)
[2022-04-10 03:02] VITALS: BP 95/42; RESP 18; TEMP 37.1
--- NOTE | 2022-04-10 06:29 | PC.NURSE ---
Patient sleeping overnight. No c/o pain. called this morning to check-in on patient, requests that he is called when there is a discharge time.
[2022-04-10 07:31] LABS: Glucose, Whole Blood 54 mg/dL (60-115)
[2022-04-10 07:49] LABS: Glucose, Whole Blood 72 mg/dL (60-115)
[2022-04-10 08:10] VITALS: BP 81/35; PULSE 76; RESP 12
--- NOTE | 2022-04-10 08:25 | PM.DS ---
DS: Providers Provider Date of Service: 04/10/22 Date of admission: 04/08/22 17:26 Primary care physician: Mauro Shankar III, MD DS: Summary Hospital Course Hospital Course: Chief Complaint: Abdominal pain This is a 56-year-old female patient with end-stage renal disease on hemodialysis, type 1 diabetes mellitus, history of hypertension, history of anemia of chronic disease, COPD, anxiety/depression, GERD, hyperlipidemia, neuropathy, peripheral arterial disease with occluded right iliac and left to right face fem-fem bypass graft, history of atrial fibrillation on anticoagulation.? History of low blood pressures on midodrine, history of neuropathy on gabapentin, history of hypothyroidism, history of recurrent falls history of combined systolic and diastolic heart failure,? history of recent hospitalization to [facility] where she was diagnosed to have non ST elevation HI, she is status post PCI deemed high risk for CABG, recent EF 20-30% patient has been maintained on Plavix and aspirin and has been managed medically, patient also diagnosed to have C diff and was placed on vancomycin by mouth, patient was transferred to [facility] due to debility and generalized weakness patient was sent to [facility] today due to abdominal pain associated with coffee ground vomitus, she had low blood sugar of 54 at nursing facility that improved to 154, at [facility] patient noted to have respiratory rate of 22 blood pressure 93/61 that improved with midodrine 0/97, patient was noted to be afebrile tachypneic hard lab showed anion gap metabolic acidosis with bicarb of 17 troponin of 9228 elevated LFTs with a total bili 5.4, diarrhea bili 4.6 AST 1016, normal WBC hematocrit of 34 INR elevated at 4.2 low platelet count of [address] scan of the abdomen showed pancolitis with fluid filled dilated stomach possible aspiration and right lower lobe pneumonia there was also small right pleural effusion noted on examination patient noted to have by blue discoloration of toes cold right lower extremity patient noted to have diffuse mild tenderness of abdomen, patient declined NG tube placement, patient is requesting for pain medication and wants to be comfortable, 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 Hospital course: 56-year-old female with multiple medical issues including history of coronary artery disease, s/p PCI in past, being medically managed, history of atrial fibrillation on anticoagulation, end-stage renal disease on hemodialysis, brought into [facility] due to symptoms of abdominal pain and coffee-ground emesis and noted to have elevated troponin, elevated INR, dilated fluid-filled stomach, guallpa colitis, possible aspiration pneumonia Patient declined further workup and treatment including not having further dialysis and instead wanted to be treated for comfort only. Non ST-elevation HI significantly elevated troponin no chest pain, patient recently discharged from [facility] where she was diagnosed to have non ST-elevation HI status post PCI was deemed high risk for CABG, EF? 20-30% has chronic left bundle-branch block patient wishes no further treatment Pancolitis/recent C diff colitis End-stage renal disease Upper GI bleed Nausea vomiting with coffee-ground emesis, H&H stable anion gap metabolic acidosis Chronic combined diastolic/systolic heart failure no acute exacerbation Chronic anemia due to anemia of chronic kidney disease COPD no acute exacerbation Hypothyroidism Transaminitis Aspiration pneumonia Hypoglycemia with history of diabetes mellitus Peripheral arterial disease status post left to right fem-fem bypass graft with persistent right lower extremity disease with right foot cyanotic toes. 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 She was given dilaudid for comfort in the patient was given Dilaudid for comfort and was evaluated by hospice and will go home today with hospice Time Spent with Patient Time attestation: Total time spent providing and/or coordinating discharge services: Discharge coordination time: Greater than 30 minutes Quality: Safe Use of Opioids Does Pt have an Active Cancer Diagnosis on the Problem List?: No Quality: Stroke Does the patient have a stroke diagnosis?: No Physical Exam Vital Signs: Vital Signs: Last Vital Signs Temp 98.7 F 04/10/22 03:02 Pulse 75 04/09/22 22:26 Resp 18 04/10/22 03:02 BP 95/42 L 04/10/22 03:02 Pulse Ox 95 04/09/22 22:26 O2 Del Method 04/10/22 03:02 O2 Flow Rate 3 04/10/22 03:02 BMI result Body Mass Index 23.8 DS: Data Data Completed and Pending Labs on day of discharge: Laboratory Results - last 24 hr 04/09/22 04/09/22 04/09/22 10:55 10:58 11:15 POC Glucose < 10 L* 12 L* 17 L* 04/09/22 04/10/22 04/10/22 11:29 07:11 07:45 POC Glucose 145 H 54 L* 72 Discharge Plan Discharge Anticipated Discharge Date/Time: 04/10/22 08:24 Patient Disposition: Hospice - Home Discharge Diagnosis: NSTEMI, ESRD, hospice Referrals: Karen RIVERA [Outside] - 1 Week Mauro Shankar III, MD [Primary Care Provider] - 1 Week Discharge Medications: New morphine concentrate 100 mg/5 mL (20 mg/mL) solution 5 mg PO Q3H PRN (Reason: pain/comfort) 15 Days Qty: 30 0RF Rx Instructions: Partial Fill upon patient request. atropine 1 % drops 1 drp sublingual Q6H PRN (Reason: Secretions) 15 Days Qty: 5 0RF lorazepam [Lorazepam Intensol] 2 mg/mL concentrate 0.5 mg PO Q4H PRN (Reason: anxiety/restlessness) Qty: 30 0RF Discontinued insulin glargine 100 unit/mL Solution 6 unit SUBCUT BEDTIME polyethylene glycol 3350 [Miralax] 17 gram Powder In Packet 17 g PO DAILY PRN (Reason: Constipation) isosorbide mononitrate [Imdur] 30 mg Tablet Extended Release 24 Hr 30 mg PO SUTUTHSA@0900 midodrine 5 mg Tablet 5 mg PO TIDWM Rx Instructions: do not give last dose of day after 6PM or within 4 hrs of bedtime melatonin 3 mg Tablet 3 mg PO BEDTIME PRN (Reason: Insomnia) clopidogrel [Plavix] 75 mg Tablet 75 mg PO DAILY Procrit 20,000 unit/mL Solution 20,000 unit SUBCUT MOWEFR@1600 PRN (Reason: ANEMIA ) Rx Instructions: GIVE DURING DIALYSIS hydrocortisone 1 % Cream 1 appl TOPICAL BID Rx Instructions: ARMS AND BACK levothyroxine [Levoxyl] 50 mcg Tablet 50 mcg PO DAILY nitroglycerin 0.4 mg Tablet, Sublingual 0.4 mg SUBLINGUAL Q5M PRN (Reason: Chest Pain) Rx Instructions: do not exceed 3 doses per episode docusate sodium [Colace] 100 mg Capsule 100 mg PO BID PRN (Reason: Constipation) gabapentin 100 mg Capsule 300 mg PO BEDTIME insulin lispro 100 unit/mL Solution 1 sliding scale dose SUBCUT QIDACHS Protocol: Insulin Correction Scale Less than or equal to 110 ---- Give (units): 0 111 to 150 Give (units): 0 151 to 200 Give (units): 2 201 to 250 Give (units): 4 251 to 300 Give (units): 6 301 to 350 Give (units): 8 Greater than 350 Give (units): 10 Call MD if Blood Glucose > : 350 Nephrocaps 1 mg Capsule 1 cap PO MOWEFR Rx Instructions: GIVE ON DIALYSIS DAYS albuterol sulfate [ProAir HFA] 90 mcg/actuation Hfa Aerosol Inhaler 2 puff INHALATION Q6H PRN (Reason: Shortness Of Breath) oxycodone 5 mg Tablet 5 mg PO Q6H PRN (Reason: Pain) rosuvastatin [Crestor] 40 mg Tablet 40 mg PO DAILY metoprolol tartrate 25 mg Tablet 12.5 mg PO DAILY duloxetine [Cymbalta] 60 mg Capsule,Delayed Release(Dr/Ec) 60 mg PO DAILY fenofibrate nanocrystallized 145 mg Tablet 145 mg PO DAILY cholecalciferol (vitamin D3) 25 mcg (1,000 unit) Tablet 25 mcg PO DAILY sevelamer carbonate 800 mg Tablet 800 mg PO TIDWM Rx Instructions: must administer with a meal/food Eliquis 2.5 mg Tablet 2.5 mg PO BID Probiotic 3 billion cell Capsule 3,000 mmu cells PO DAILY Rx Instructions: administer with a meal Anoro Ellipta 62.5-25 mcg/actuation Blister With Device 1 inh INHALATION DAILY Combivent Respimat 20-100 mcg/actuation Mist 1 puff INHALATION Q6H PRN (Reason: COPD) Firvanq 25 mg/mL Recon Soln 125 mg PO QID Discharge Orders: Discharge Order (Routine); Ordered 04/10/22 Ordered By: Haris Perdomo Diet: Advance to usual diet Activity on Discharge: As tolerated Stand Alone Forms: Patient Portal Discharge page Care Plan Goals: Comfort measures only Health Concerns: nstemi, esrd Plan of Treatment: Comfort measures only home hospice Assessment: comfort measures only Discharge Date/Time: 04/10/22 12:13
[2022-04-10 08:33] VITALS: BP 67/25; RESP 16; O2SAT 97
--- NOTE | 2022-04-10 08:54 | MHC.CM.PN ---
Addendum entered by Halley Clinton 04/10/22 09:54: RENAN SPOKE WITH PTS HUBER VIA T/C [phone]. HE IS AWARE OF TRANSPORT TIME AND IS ASKING IF PT CAN GET ANY DISPOSABLE BED PADS AND WIPES. RENAN HAS RELAYED REQUEST TO [facility]. BLS TRANSPORT REQUESTED FOR 1000 HOURS Addendum entered by Halley Clinton 04/10/22 09:13: RENAN HAS BEEN UNABLE TO REACH PTS , HUBER HIS LINE HAS BEEN BUSY AND HIS VM IS NOT SET UP HOWEVER PER CONVERSATION WITH RENAN YESTERDAY, HE IS AWARE PT WILL BE RETURNING HOME THIS MORNING Original Note: PT WILL DC HOME THIS MORNING WITH [facility] HAS CONFIRMED ALL NECESSARY EQUIPMENT WAS DELIVERED YESTERDAY AND THEY WILL INITIATE SOC TODAY PT WILL BE TRANSPORTED VIA [facility]
--- NOTE | 2022-04-10 11:56 | PC.NURSE ---
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 D/c to home via ambulance with hospice services.
== END 2022-04-10 12:13 | disposition hospice, home (50) | DRG 377 ==
LOC: HO.ED 16:36 → HO.EDOVER 17:34
PROVIDERS: Admitting Provider Hospitalist; Emergency Provider Emergency Medicine; PCP Internal Medicine; Visit Provider Internal Medicine
DX: K92.2 Gastrointestinal hemorrhage, unspecified (principal); I21.4 Non-ST elevation (NSTEMI) myocardial infarction; J69.0 Pneumonitis due to inhalation of food and vomit; N18.6 End stage renal disease; I13.2 Hypertensive heart and chronic kidney disease with heart failure and with stage 5 chronic kidney disease, or end stage renal disease; A04.72 Enterocolitis due to Clostridium difficile, not specified as recurrent; K56.7 Ileus, unspecified; K51.012 Ulcerative (chronic) pancolitis with intestinal obstruction; E87.2 Acidosis; I50.42 Chronic combined systolic (congestive) and diastolic (congestive) heart failure; Z66 Do not resuscitate; I44.7 Left bundle-branch block, unspecified; I48.0 Paroxysmal atrial fibrillation; E78.5 Hyperlipidemia, unspecified; K21.9 Gastro-esophageal reflux disease without esophagitis; I25.10 Atherosclerotic heart disease of native coronary artery without angina pectoris; R74.01 Elevation of levels of liver transaminase levels; Z51.5 Encounter for palliative care; E10.22 Type 1 diabetes mellitus with diabetic chronic kidney disease; E03.9 Hypothyroidism, unspecified; R79.1 Abnormal coagulation profile; E10.51 Type 1 diabetes mellitus with diabetic peripheral angiopathy without gangrene; M62.50 Muscle wasting and atrophy, not elsewhere classified, unspecified site; J44.9 Chronic obstructive pulmonary disease, unspecified; Z20.822 Contact with and (suspected) exposure to COVID-19; Z99.2 Dependence on renal dialysis; Z88.8 Allergy status to other drugs, medicaments and biological substances; Z79.01 Long term (current) use of anticoagulants; Z79.02 Long term (current) use of antithrombotics/antiplatelets; Z79.82 Long term (current) use of aspirin; Z79.899 Other long term (current) drug therapy
CPT/HCPCS: 36415; 74176; 76705; 80048; 80076; 82947; 83690; 83735; 84484; 85025; 85610; 85730; 86850; 86900; 86901; 87635; 93005; 99285; J1170; J2405; J3010